=== PATIENT | female | born 1950 | race African-American/Black ===

== ENCOUNTER → 2017-05-20 | Outpatient (CLI) | payer MEDICARE, OTHER ==
[~2017-05-20] MED LIST: ALBU8.5H8 IH; AMLO2.5T PO; BECL8.7A6 IH; BENA1TAB18 PO; BENA20 PO; CALC-1085 PO; DOCU250C90 PO; DULO60CA44 PO; HYDR-3971 PO; HYDR25TA PO; LANS30 PO; LEVO25TA4 PO; MONT10TA21 PO; NYSTOP PO; OXYB5 PO; SPIR25 PO; SUMA25TA9 PO; TRAM50TA4 PO
== END | disposition home or self-care (01) ==
LOC: RADMN 13:08
PROVIDERS: ATTEND Specialist
DX: I67.2 Cerebral atherosclerosis (principal); R90.82 White matter disease, unspecified; G93.89 Other specified disorders of brain
CPT/HCPCS: 70450; 70486

== ENCOUNTER → 2017-09-17 | Outpatient (CLI) | payer MEDICARE, OTHER | END | disposition home or self-care (01) | LOC: RADPV 10:16 | PROVIDERS: ATTEND Specialist | DX: M77.31 Calcaneal spur, right foot (principal); M76.61 Achilles tendinitis, right leg; S93.401S Sprain of unspecified ligament of right ankle, sequela; X58.XXXS Exposure to other specified factors, sequela ==

== ENCOUNTER → 2017-11-03 | Outpatient (CLI) | payer MEDICARE, OTHER | END | disposition home or self-care (01) | LOC: RADMN 13:28 | PROVIDERS: ATTEND Specialist | DX: M77.32 Calcaneal spur, left foot (principal); M72.2 Plantar fascial fibromatosis; M19.072 Primary osteoarthritis, left ankle and foot; M65.862 Other synovitis and tenosynovitis, left lower leg | CPT/HCPCS: 73721 ==

== ENCOUNTER → 2018-02-28 | Outpatient (CLI) | payer MEDICARE, OTHER ==
[2018-02-28 12:00] LABS: CALCIUM, TOTAL 9.4 mg/dL (8.8-10.5); CREATININE 1.2 mg/dL (0.60-1.30); POTASSIUM 4.2 mmol/L (3.5-5.1)
== END | disposition home or self-care (01) ==
LOC: RADMN 11:03
DX: S86.012D Strain of left Achilles tendon, subsequent encounter (principal); M19.072 Primary osteoarthritis, left ankle and foot; G43.709 Chronic migraine without aura, not intractable, without status migrainosus; Z88.0 Allergy status to penicillin; Z88.6 Allergy status to analgesic agent; Z88.5 Allergy status to narcotic agent; Z88.1 Allergy status to other antibiotic agents; X58.XXXD Exposure to other specified factors, subsequent encounter

== ENCOUNTER → 2018-03-07 | Outpatient (CLI) | payer MEDICARE, OTHER ==
[~2018-03-07] MED LIST changes: +GADOBUTROL 1 MMOL/ML 10 ML VIAL IVP ONE
== END | disposition home or self-care (01) ==
LOC: RADMN 12:17
PROVIDERS: ATTEND Podiatrist Foot & Ankle Surgery
DX: S86.012D Strain of left Achilles tendon, subsequent encounter (principal); M19.072 Primary osteoarthritis, left ankle and foot; X58.XXXD Exposure to other specified factors, subsequent encounter
CPT/HCPCS: 73723; A9585

== ENCOUNTER → 2018-04-18 | Outpatient (CLI) | payer MEDICARE, OTHER ==
[~2018-04-18] MED LIST changes: -AMLO2.5T PO; +AMLO2.5T3 PO; -GADOBUTROL 1 MMOL/ML 10 ML VIAL IVP ONE
== END | disposition home or self-care (01) ==
LOC: RADMN 10:06
PROVIDERS: ATTEND Specialist
DX: M75.122 Complete rotator cuff tear or rupture of left shoulder, not specified as traumatic (principal); M75.22 Bicipital tendinitis, left shoulder; M19.012 Primary osteoarthritis, left shoulder; M25.412 Effusion, left shoulder
CPT/HCPCS: 73221

== ENCOUNTER → 2019-08-25 | Outpatient (CLI) | payer MEDICARE, OTHER ==
[~2019-08-25] MED LIST changes: -AMLO2.5T3 PO; +AMLO2.5T4 PO; -BENA20 PO; +BENA20TA11 PO; +HYDR-1475 PO; -HYDR25TA PO
== END | disposition home or self-care (01) ==
LOC: RADMN 07:52
PROVIDERS: ATTEND Specialist
DX: M43.12 Spondylolisthesis, cervical region (principal); M48.03 Spinal stenosis, cervicothoracic region; M50.11 Cervical disc disorder with radiculopathy, high cervical region; M50.121 Cervical disc disorder at C4-C5 level with radiculopathy; M25.78 Osteophyte, vertebrae; M99.51 Intervertebral disc stenosis of neural canal of cervical region
CPT/HCPCS: 72141

== ENCOUNTER 2019-09-15 16:59 | Emergency (ER) | payer MEDICARE, OTHER ==
[~2019-09-15] VITALS: Ht 157.5 cm; Wt 87.3 kg
[2019-09-15] MEDS ORDERED: LIDOCAINE 1% 10 ML VIAL INJ ONE (18:30)
[2019-09-15] MEDS ORDERED: LIDOCAINE 5% TRANSDERMAL PATCH TD ONE (19:15)
[2019-09-15] MEDS ORDERED: IBUPROFEN 400 MG TABLET PO ONE (19:15)
[2019-09-15] MEDS ORDERED: OxyCODONE HCL/ACETAMINOPHEN 5-325 MG TABLET PO ONE (19:15)
[2019-09-15 21:30] VITALS: BP 132/78
== END 2019-09-15 22:46 | disposition home or self-care (01) ==
LOC: EMS 17:01
DX: M25.512 Pain in left shoulder (principal); I10 Essential (primary) hypertension; E78.00 Pure hypercholesterolemia, unspecified; F32.9 Major depressive disorder, single episode, unspecified; Z88.0 Allergy status to penicillin; Z88.2 Allergy status to sulfonamides; Z88.5 Allergy status to narcotic agent; Z79.899 Other long term (current) drug therapy
CPT/HCPCS: 73030; 73200; 99284; J3490

== ENCOUNTER → 2019-10-05 | Outpatient (CLI) | payer MEDICARE, OTHER ==
[~2019-10-05] MED LIST changes: -NYSTOP PO
== END | disposition home or self-care (01) ==
LOC: RADMN 09:00
PROVIDERS: ATTEND Specialist
DX: S46.002A Unspecified injury of muscle(s) and tendon(s) of the rotator cuff of left shoulder, initial encounter (principal); S46.001A Unspecified injury of muscle(s) and tendon(s) of the rotator cuff of right shoulder, initial encounter; M66.822 Spontaneous rupture of other tendons, left upper arm; X58.XXXA Exposure to other specified factors, initial encounter; Y92.89 Other specified places as the place of occurrence of the external cause; Y93.89 Activity, other specified; Y99.8 Other external cause status; M19.012 Primary osteoarthritis, left shoulder
CPT/HCPCS: 73218; 73221

== ENCOUNTER 2019-11-09 10:39 | Emergency (ER) | payer MEDICARE, OTHER ==
[~2019-11-09] VITALS: Ht 160 cm; Wt 87.3 kg
[2019-11-09 14:01] LABS: EOSINOPHILS % (AUTO) 1.9 % (1.0-6.0); HEMATOCRIT 32.3 % (36-46); HEMOGLOBIN 10.5 g/dL (12.0-16.0); LYMPHOCYTES # (AUTO) 2.3 K/uL (1.0-4.8); LYMPHOCYTES % (AUTO) 31.5 % (22.0-44.0); MEAN CORPUSCULAR HEMOGLOBIN 31.5 pg (26.0-34.0); MEAN CORPUSCULAR HGB CONC 32.5 G/dL (31.0-37.0); MEAN CORPUSCULAR VOLUME 97 fL (80-100); MONOCYTES # (AUTO) 0.6 K/uL (0.1-1.0); MONOCYTES % (AUTO) 8.2 % (2.0-9.0); NEUTROPHILS # (AUTO) 4.2 K/uL (1.8-7.7); NEUTROPHILS % (AUTO) 57.4 % (40.0-70.0); PLATELET COUNT (AUTO) 258 K/uL (150-450); RED BLOOD CELL COUNT(AUTO) 3.33 MIL/uL (4.00-5.20); RED CELL DISTRIBUTION WIDTH 13.6 % (11.5-14.5)
[2019-11-09 14:16] LABS: ANION GAP 7 mmol/L (8-16); CALCIUM, TOTAL 9.6 mg/dL (8.8-10.5); CARBON DIOXIDE 31 mmol/L (22-29); CHLORIDE 104 mmol/L (98-107); CREATININE 1.03 mg/dL (0.60-1.30); GLUCOSE,RANDOM 85 mg/dL (70-110); POTASSIUM 4.3 mmol/L (3.5-5.1); SODIUM SERUM 142 mmol/L (136-145); UREA NITROGEN, BLOOD 14 mg/dL (7-18)
[2019-11-09 14:20] LABS: GLOMERULAR FILTR. RATE CALC > 60 mL/min (>60)
[2019-11-09 14:21] LABS: ALANINE AMINOTRANSFERASE 23 U/L (12-78); ALBUMIN 3.6 g/dL (3.4-5.0); ALKALINE PHOSPHATASE 65 U/L (46-116); ASPARTATE AMINOTRANSFERASE 17 U/L (15-37); BILIRUBIN,TOTAL 0.6 mg/dL (0.1-1.0); TOTAL PROTEIN, SERUM 7.3 g/dL (6.4-8.2)
[2019-11-09 14:54] VITALS: BP 136/70
== END 2019-11-09 15:58 | disposition home or self-care (01) ==
LOC: EMS 10:45
DX: S30.1XXA Contusion of abdominal wall, initial encounter (principal); F32.9 Major depressive disorder, single episode, unspecified; E78.00 Pure hypercholesterolemia, unspecified; Z86.73 Personal history of transient ischemic attack (TIA), and cerebral infarction without residual deficits; Z88.0 Allergy status to penicillin; Z88.6 Allergy status to analgesic agent; Z88.5 Allergy status to narcotic agent; X58.XXXA Exposure to other specified factors, initial encounter; Y93.89 Activity, other specified; Y92.89 Other specified places as the place of occurrence of the external cause; Y99.8 Other external cause status
CPT/HCPCS: 71101